=== PATIENT | male | born 1990 ===

== ENCOUNTER → 2023-01-03 | Outpatient (CLI) | payer OTHER ==
[~2023-01-03] MED LIST: CEFD300; Cipro500 MG PO; GUAI600T33 PO; HYDACE5; Naprosyn500 MG PO; Norco 5-325 Ta1 EACH PO
[2023-01-05 00:09] LABS: CHLAMYDIA TRACHOMATIS, NAA Negative (Negative)
== END | disposition home or self-care (01) ==
LOC: LAB SHORT 10:23 → LAB 10:23
PROVIDERS: Physician Assistant
DX: Z20.9 Contact with and (suspected) exposure to unspecified communicable disease (principal)
CPT/HCPCS: 87086; 87491; 87591